=== PATIENT | female | born 1975 | race Caucasian/White ===

== ENCOUNTER 2020-08-28 09:35 | Outpatient (REF) | payer OTHER, SELFPAY | END 2020-08-28 09:36 | disposition home or self-care (01) | LOC: HO.LAB 09:35 | PROVIDERS: Visit Provider Nurse Practitioner Family | DX: N39.0 Urinary tract infection, site not specified (principal) | CPT/HCPCS: 87086; 87088; 87186 ==

== ENCOUNTER 2020-10-09 11:29 | Outpatient (REF) | payer OTHER, SELFPAY ==
[2020-10-11 22:36] LABS: TS Negative Control Passed; TS Panel A 0; TS Panel B 0; TS Positive Control Passed; TSpotTB Negative (SeeBelow)
== END 2020-10-09 11:30 | disposition home or self-care (01) ==
LOC: HO.HMGCLDS 11:29
PROVIDERS: Visit Provider Nurse Practitioner Family
DX: Z02.1 Encounter for pre-employment examination (principal)
CPT/HCPCS: 36415; 86481

== ENCOUNTER 2022-01-10 10:34 | Outpatient (REF) | payer OTHER, SELFPAY ==
--- NOTE | ~2022-01-10 | XR_ITS ---
EXAMINATION: XR PELVIS XR SI JOINTS-BILATERAL CLINICAL INFORMATION: Right-sided sciatica. COMPARISON: None TECHNIQUE: Single frontal view of the pelvis and frontal, oblique views of both SI joints are obtained. FINDINGS: Pelvis: Bony alignments are intact. The cortices are intact. Mild osteitis pubis. SI joints: Bony alignments are intact. The cortices are intact. Articular margins, joint space appear unremarkable. The soft tissues are unremarkable. XR/XR pelvis 1-2V IMPRESSION: 1. Mild osteitis pubis. 2. Otherwise unremarkable radiographic appearance of the pelvis and both SI joints.
--- NOTE | ~2022-01-10 | XR_ITS ---
EXAMINATION: XR PELVIS XR SI JOINTS-BILATERAL CLINICAL INFORMATION: Right-sided sciatica. COMPARISON: None TECHNIQUE: Single frontal view of the pelvis and frontal, oblique views of both SI joints are obtained. FINDINGS: Pelvis: Bony alignments are intact. The cortices are intact. Mild osteitis pubis. SI joints: Bony alignments are intact. The cortices are intact. Articular margins, joint space appear unremarkable. The soft tissues are unremarkable. XR/XR sacroiliac joint 1-2V IMPRESSION: 1. Mild osteitis pubis. 2. Otherwise unremarkable radiographic appearance of the pelvis and both SI joints.
[2022-01-10 13:56] LABS: MANUAL DIFF FLAG NO
[2022-01-10 14:07] LABS: Basophils Absolute Auto 0.1 X10*3/uL (0.0-0.2); Basophils Percent Auto 1.1 % (0-2); Eosinophils Absolute Auto 0.2 X10*3/uL (0.0-0.4); Eosinophils Percent Auto 2.9 % (0-4); Hematocrit 37.7 % (37.0-47.0); Hemoglobin 12.5 g/dl (12.0-16.0); Imm Gran Abs Auto 0.01 X10*3/uL (0.00-0.03); Imm Gran Pct Auto 0.2 % (0.0-0.4); Lymphocytes Absolute Auto 2.2 X10*3/uL (1.2-4.9); Lymphocytes Percent Auto 39.2 % (20-40); Mean Corpuscular HGB Conc 33.2 g/dl (31.0-35.0); Mean Corpuscular Hemoglobin 29.1 pg (27.0-33.0); Mean Corpuscular Volume 87.7 fL (80.0-98.0); Mean Platelet Volume 12.1 fL (9.4-12.3); Monocytes Absolute Auto 0.4 X10*3/uL (0.1-1.2); Monocytes Percent Auto 6.5 % (2-11); Neutrophils Absolute Auto 2.8 x10*3/uL (2.0-8.3); Neutrophils Percent Auto 50.1 % (45-73); Platelet Count 254 X10*3/uL (160-400); Red Cell Distribution Width 12.9 % (11.0-16.0); White Blood Count 5.5 X10*3/uL (4.8-10.8)
[2022-01-10 14:33] LABS: Alanine Aminotransferase 84 U/L (0-31); Albumin Level 4.1 g/dL (3.5-5.0); Alkaline Phosphatase 74 U/L (39-117); Anion Gap 12 (12-20); Aspartate Amino Transferase 59 U/L (5-31); Bilirubin Total 0.3 mg/dL (0.0-1.0); Blood Urea Nitrogen 9 mg/dL (9-16); Calcium 9.1 mg/dL (8.4-10.2); Carbon Dioxide 24 mmol/L (22-29); Chloride 105 mmol/L (96-108); Estimated Glomerular Filt Rate > 60; Glucose Fasting 241 mg/dL (60-99); Potassium 4.2 mmol/L (3.3-5.1); Sodium 137 mmol/L (135-145); Total Protein 7.4 g/dL (6.5-8.0)
[2022-01-10 14:52] LABS: Folate 12.8 ng/mL (> or = 4.0); Vitamin B12 616 pg/mL (200-900)
== END 2022-01-10 10:35 | disposition home or self-care (01) ==
LOC: HO.HMGCX 10:34
PROVIDERS: Visit Provider Nurse Practitioner Family
DX: M54.31 Sciatica, right side (principal)
CPT/HCPCS: 36415; 72170; 72200; 80053; 82607; 82746; 85025

== ENCOUNTER → 2024-08-02 12:05 | Outpatient (BNVA) | payer SELFPAY | PROVIDERS: PCP Internal Medicine; Visit Provider Registered Nurse | DX: Z02.1 Encounter for pre-employment examination (principal) ==